=== PATIENT | female | born 1995 | race Caucasian/White ===

== ENCOUNTER 2024-04-07 16:56 | Emergency (ER) | payer BC ==
[~2024-04-07] VITALS: Ht 157.5 cm; Wt 58.3 kg
[2024-04-07] MEDS ORDERED: ZOLOFT100 MG PO (17:25)
[2024-04-07] MEDS ORDERED: PROTONIX20 MG PO (17:25)
[2024-04-07 18:23] VITALS: PULSE 87; RESP 14; TEMP 98.4
[2024-04-07 19:57] VITALS: BP 124/74; PULSE 76; RESP 18; TEMP 98.3; O2SAT 99
== END 2024-04-07 19:45 | disposition home or self-care (01) ==
LOC: FSED 17:00
DX: R10.11 Right upper quadrant pain (principal); K21.9 Gastro-esophageal reflux disease without esophagitis; F41.9 Anxiety disorder, unspecified; Q79.63 Vascular Ehlers-Danlos syndrome
CPT/HCPCS: 76705; 80053; 81003; 81025; 85025; 99284